=== PATIENT | male | born 1945 | race Caucasian/White ===

== ENCOUNTER 2022-08-13 10:41 | Outpatient (CLI) | payer OTHER | END 2022-08-13 23:59 | disposition home or self-care (01) | LOC: RAD 10:41 | PROVIDERS: ATTEND Internal Medicine | DX: J98.6 Disorders of diaphragm (principal) | CPT/HCPCS: 76000 ==

== ENCOUNTER 2023-01-12 08:00 | Outpatient (CLI) | payer OTHER | END 2023-01-12 23:59 | disposition home or self-care (01) | LOC: RT 08:00 | PROVIDERS: ATTEND Internal Medicine | DX: G61.0 Guillain-Barre syndrome (principal); R06.02 Shortness of breath | CPT/HCPCS: 94618 ==